=== PATIENT | male | born 1960 | race Caucasian/White ===

== ENCOUNTER 2019-11-10 13:49 | Emergency (ER) | payer OTHER ==
[~2019-11-10] VITALS: Ht 193 cm; Wt 104.3 kg
[2019-11-10 15:37] VITALS: BP 128/76
== END 2019-11-10 15:38 | disposition home or self-care (01) ==
LOC: ER 13:49
DX: F07.81 Postconcussional syndrome (principal); G89.29 Other chronic pain; Z88.8 Allergy status to other drugs, medicaments and biological substances; S09.8XXA Other specified injuries of head, initial encounter; W22.8XXA Striking against or struck by other objects, initial encounter; Y93.89 Activity, other specified; Y92.89 Other specified places as the place of occurrence of the external cause; Y99.8 Other external cause status